=== PATIENT | female | born 1985 | race Two or more races ===

== ENCOUNTER 2017-01-31 11:39 | Outpatient (CLI) | payer OTHER | END 2017-01-31 11:40 | disposition critical access hospital (66) | DX: Z04.1 Encounter for examination and observation following transport accident (principal); V89.2XXA Person injured in unspecified motor-vehicle accident, traffic, initial encounter; Y92.414 Local residential or business street as the place of occurrence of the external cause | CPT/HCPCS: A0425; A0427 ==

== ENCOUNTER 2017-01-31 11:52 | Emergency (ER) | payer OTHER ==
[2017-01-31 13:07] VITALS: BP 148/84
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
--- NOTE | 2017-01-31 13:18 | XRAY Preliminary Report ---
Exam: XR Hip w/Pelvis 1V LT IMPRESSION: Normal pelvis radiography. [facility] SITE ID: [id number]
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
== END 2017-01-31 13:42 | disposition home or self-care (01) ==
LOC: ED 11:52
DX: S70.02XA Contusion of left hip, initial encounter (principal); S70.12XA Contusion of left thigh, initial encounter; S39.012A Strain of muscle, fascia and tendon of lower back, initial encounter; V43.62XA Car passenger injured in collision with other type car in traffic accident, initial encounter; Y92.411 Interstate highway as the place of occurrence of the external cause; O24.912 Unspecified diabetes mellitus in pregnancy, second trimester; Z3A.16 16 weeks gestation of pregnancy; Z79.4 Long term (current) use of insulin; Z79.82 Long term (current) use of aspirin
CPT/HCPCS: 99283; 99284